=== PATIENT | female | born 1940 | race Caucasian/White ===

== ENCOUNTER 2017-09-19 13:15 | Outpatient (CLI) | payer MEDICARE | END 2017-09-19 13:16 | disposition home or self-care (01) | LOC: BICMAMMO 13:15 | PROVIDERS: ATTEND Obstetrics & Gynecology Gynecologic Oncology | DX: Z12.31 Encounter for screening mammogram for malignant neoplasm of breast (principal); R92.1 Mammographic calcification found on diagnostic imaging of breast; Z80.3 Family history of malignant neoplasm of breast; Z85.42 Personal history of malignant neoplasm of other parts of uterus | CPT/HCPCS: 77063; 77067 ==

== ENCOUNTER 2018-09-22 11:00 | Outpatient (CLI) | payer MEDICARE ==
--- NOTE | 2018-09-22 12:27 | RAD ---
TWO VIEWS CHEST: History: Malignant neoplasm of endometrium. Date: 09-22-18 Comparison: 10-10-16 FINDINGS: Two views chest demonstrates ectasia of the aorta. The lungs are well aerated. No evidence of active intrathoracic disease seen. No evidence of effusions, pneumonia, or pneumothorax seen. IMPRESSION: Unremarkable two views chest. POS: [facility]
== END 2018-09-22 11:01 | disposition home or self-care (01) ==
LOC: BICMAMMO 11:00
PROVIDERS: ATTEND Obstetrics & Gynecology Gynecologic Oncology
DX: Z12.31 Encounter for screening mammogram for malignant neoplasm of breast (principal); C54.1 Malignant neoplasm of endometrium; Z80.3 Family history of malignant neoplasm of breast; Z85.42 Personal history of malignant neoplasm of other parts of uterus
CPT/HCPCS: 71046; 77063; 77067

== ENCOUNTER 2018-11-06 14:44 | Outpatient (CLI) | payer MEDICARE ==
--- NOTE | 2018-11-06 15:44 | RAD ---
LUMBAR SPINE 2 VIEWS: HISTORY: M54.5, low back pain, difficulty standing and sitting for long periods of time. FINDINGS: There are some generalized disk-osteophytosis changes. Mild grade I spondylolisthesis of L4 on L5. No acute fracture or dislocation. IMPRESSION: Lumbar spondylosis with mild anterolisthesis of L4 on L5. POS: [facility]
--- NOTE | 2018-11-06 15:45 | RAD ---
CERVICAL SPINE AP AND LATERAL AND STANDARD: HISTORY: M54.16, radiculopathy, neck pain. COMPARISON: None. FINDINGS: The open mouth odontoid view is normal. The mandible is intact. Moderate disk arthropathy from C3-C6. There is mild narrowing of the C5-6 and C6-7 disk spaces uncin ate process hypertrophy. Degenerative 1-2 mm C3 over C4 anterolisthesis. IMPRESSION: Degenerative changes as described. No acute abnormality. POS: [facility]
== END 2018-11-06 14:45 | disposition home or self-care (01) ==
LOC: TBSIIMAG 14:44
PROVIDERS: ATTEND Neurological Surgery
DX: M47.26 Other spondylosis with radiculopathy, lumbar region (principal); M43.16 Spondylolisthesis, lumbar region; M47.812 Spondylosis without myelopathy or radiculopathy, cervical region
CPT/HCPCS: 72040; 72100

== ENCOUNTER 2019-09-24 14:15 | Outpatient (CLI) | payer MEDICARE ==
--- NOTE | 2019-09-24 16:04 | MMO ---
Bilateral MAMMO Bilat Screen [facility]. CLINICAL HISTORY: Patient is 79 years old and is seen for screening. The patient has no family history of breast cancer. The patient has a history of endometrial cancer at age 67. VIEWS: The views performed were: bilateral craniocaudal with tomosynthesis and bilateral mediolateral oblique with tomosynthesis. FILMS COMPARED: The present examination has been compared to prior imaging studies performed at [facility] on 09/14/2015, 09/17/2016, 09/19/2017 and 09/22/2018. This study has been interpreted with the assistance of computer-aided detection. MAMMOGRAM FINDINGS: There are scattered fibroglandular densities. There are stable benign appearing calcifications seen in both breasts. There are no suspicious masses, suspicious calcifications, or new areas of architectural distortion. IMPRESSION: THERE IS NO MAMMOGRAPHIC EVIDENCE OF MALIGNANCY. A ROUTINE FOLLOW-UP MAMMOGRAM IN 1 YEAR IS RECOMMENDED. THE RESULTS OF THIS EXAM WERE SENT TO THE PATIENT. ACR BI-RADS Category 2 - Benign finding MAMMOGRAPHY NOTE: 1. A negative mammogram report should not delay a biopsy if a dominant of clinically suspicious mass is present. 2. Approximately 10% to 15% of breast cancers are not detected by mammography. 3. Adenosis and dense breasts may obscure an underlying neoplasm. Reported by: ONDINA LYLES MD Electonically Signed: [id number]
== END 2019-09-24 14:16 | disposition home or self-care (01) ==
LOC: BICMAMMO 14:15
PROVIDERS: ATTEND Obstetrics & Gynecology Gynecologic Oncology
DX: Z12.31 Encounter for screening mammogram for malignant neoplasm of breast (principal); Z85.42 Personal history of malignant neoplasm of other parts of uterus
CPT/HCPCS: 77063; 77067

== ENCOUNTER 2020-06-10 09:27 | Outpatient (CLI) | payer MEDICARE ==
--- NOTE | 2020-06-10 11:58 | RAD ---
PA AND LATERAL VIEWS CHEST: Date: 06/10/2020 HISTORY: Dyspnea on exertion. COMPARISON: 09/22/2018. FINDINGS: The heart size is normal. The aorta is tortuous. The lungs are well expanded without lobar consolidat ion, pneumothoraces, or pleural effusions. There are degenerative changes in the spine. IMPRESSION: Stable exam. No acute process. POS: [facility]
== END 2020-06-10 09:28 | disposition home or self-care (01) ==
LOC: BICRAD 09:27
PROVIDERS: ATTEND Physician Assistant Medical
DX: R06.09 Other forms of dyspnea (principal); D50.9 Iron deficiency anemia, unspecified
CPT/HCPCS: 71046

== ENCOUNTER 2020-10-13 13:18 | Outpatient (CLI) | payer MEDICARE ==
--- NOTE | 2020-10-13 13:34 | RAD ---
EXAM: Chest PA and lateral: HISTORY: Dyspnea COMPARISON: 06/10/2020 FINDINGS: Lungs show no evidence of confluent infiltrate or consolidation. Interstitial markings are mildly pro minent especially in the right lower lung. These are stable from the prior study. Heart and mediastinum appear unremarkable. Osseous structures are unremarkable. IMPRESSION: No acute finding.
== END 2020-10-13 13:19 | disposition home or self-care (01) ==
LOC: BICRAD 13:18
PROVIDERS: ATTEND Internal Medicine Critical Care Medicine
DX: R06.00 Dyspnea, unspecified (principal)
CPT/HCPCS: 71046

== ENCOUNTER 2020-11-10 22:52 | Emergency (ER) | payer MEDICARE | END 2020-11-11 00:10 | disposition home or self-care (01) | LOC: ERS 22:52 | DX: S01.01XA Laceration without foreign body of scalp, initial encounter (principal); K21.9 Gastro-esophageal reflux disease without esophagitis; D64.9 Anemia, unspecified; W18.2XXA Fall in (into) shower or empty bathtub, initial encounter | CPT/HCPCS: 70450; 72125 ==

== ENCOUNTER 2020-12-01 09:10 | Outpatient (CLI) | payer MEDICARE ==
[2020-12-01 09:36] LABS: Estimated GFR-MDRD - POC Greater than 90
[2020-12-01] MEDS ORDERED: Iopamidol 370 76% 100 ML VIAL ONE (13:49)
== END 2020-12-01 09:11 | disposition home or self-care (01) ==
LOC: CT 09:10
PROVIDERS: ATTEND Internal Medicine Critical Care Medicine
DX: I26.99 Other pulmonary embolism without acute cor pulmonale (principal); K44.9 Diaphragmatic hernia without obstruction or gangrene
CPT/HCPCS: 71275; 82565; Q9967

== ENCOUNTER 2020-12-24 15:07 | Emergency (ER) | payer MEDICARE ==
[~2020-12-24 15:07] MED LIST: Iopamidol-370 76% 500 ML 1 ML ONE
[2020-12-24 16:28] LABS: #Basophils 0.1 thou/uL (0.0-0.2); #Lymphocytes 1.8 thou/uL (1.20-3.40); #Monocytes 1.1 thou/uL (0.11-0.59); #Neutrophils 11.3 thou/uL (1.40-6.50); %Basophils 0.5 % (0.0-1.0); %Eosinophils 0.1 % (0.0-10.0); %Lymphocytes 12.3 % (21.0-51.0); %Monocytes 7.7 % (0.0-10.0); %Neutrophils 79.4 % (42.0-75.0); Hemoglobin 14.6 g/dL (12.0-16.0); Mean Corpuscular HGB CONC 33.3 g/dL (32.0-36.0); Mean Corpuscular Hemoglobin 29.2 pg (27.0-31.0); Mean Corpuscular Volume 87.7 fL (78.0-98.0); Mean Platelet Volume 7.8 fL (7.4-10.4); Platelet Count 302 thou/uL (130-400); RBC Distribution Width 12.5 % (11.5-14.5); Red Blood Cell (RBC) Count 4.99 mill/uL (4.20-5.40); White Blood Cell (WBC) Count 14.2 thou/uL (4.8-10.8)
[2020-12-24 16:50] LABS: ALT (SGPT) 21 U/L (8-55); AST (SGOT) 24 U/L (5-34); Albumin 4.4 g/dL (3.4-4.8); Alkaline Phosphatase 79 U/L (40-110); Anion Gap 15 mmol/L (10-20); BUN (Urea Nitrogen) 9 mg/dL (9.8-20.1); Bilirubin, Total 0.9 mg/dL (0.2-1.2); Calc. Creatinine Clearance 0 mL/min (70-130); Calcium 9.7 mg/dL (7.8-10.44); Carbon Dioxide 26 mmol/L (23-31); Chloride 97 mmol/L (98-107); Globulin 3.4 g/dL (2.4-3.5); Glucose 115 mg/dL (83-110); Potassium 3.8 mmol/L (3.5-5.1); Protein, Total 7.8 g/dL (5.8-8.1); Sodium 134 mmol/L (136-145)
[2020-12-24] MEDS ORDERED: Ondansetron PF 4 MG/2 ML Vial ONE (17:31)
[2020-12-24 18:27] LABS: Bilirubin Negative (Negative); Blood, Urine Negative (Negative); Clarity Clear (Clear); Glucose, Urine (Dipstick) Normal (Negative); Ketone, Urine Negative (Negative); Leukocyte 75 Leu/uL (Negative); Nitrite Negative (Negative); Protein, Urine (Dipstick) Negative (Neg-Trace); RBC/HPF 0-3 HPF (0-3); Specific Gravity, Urine 1.023 (1.002-1.036); Urobilinogen Normal mg/dL (Less than 2); pH, Urine 5.5 (5.0-9.0)
[2020-12-24 18:30] LABS: Bacteria/HPF 1+ HPF (None Seen)
== END 2020-12-24 19:15 | disposition home or self-care (01) ==
LOC: ERS 15:07
DX: K57.32 Diverticulitis of large intestine without perforation or abscess without bleeding (principal); K21.9 Gastro-esophageal reflux disease without esophagitis; D50.9 Iron deficiency anemia, unspecified; Z79.84 Long term (current) use of oral hypoglycemic drugs; Z79.899 Other long term (current) drug therapy
CPT/HCPCS: 36415; 74177; 80053; 81003; 81015; 85025; 96374; J2405; Q9967

== ENCOUNTER 2021-08-12 21:46 | Emergency (ER) | payer MEDICARE ==
[2021-08-12 22:19] LABS: #Basophils 0.1 thou/uL (0.0-0.2); #Eosinphils 0.2 thou/uL (0.0-0.7); #Lymphocytes 2.5 thou/uL (1.20-3.40); %Basophils 1.2 % (0.0-1.0); %Eosinophils 1.7 % (0.0-10.0); %Lymphocytes 28.4 % (21.0-51.0); %Monocytes 11.8 % (0.0-10.0); %Neutrophils 56.9 % (42.0-75.0); Hemoglobin 14.9 g/dL (12.0-16.0); Mean Corpuscular HGB CONC 34.6 g/dL (32.0-36.0); Mean Corpuscular Hemoglobin 30.5 pg (27.0-31.0); Mean Platelet Volume 7.4 fL (7.4-10.4); Platelet Count 279 thou/uL (130-400); RBC Distribution Width 13.2 % (11.5-14.5); Red Blood Cell (RBC) Count 4.88 mill/uL (4.20-5.40); White Blood Cell (WBC) Count 8.8 thou/uL (4.8-10.8)
[2021-08-12] MEDS ORDERED: Acetaminophen 500 MG TAB ONE (22:20)
[2021-08-12 22:42] LABS: ALT (SGPT) 21 U/L (8-55); AST (SGOT) 18 U/L (5-34); Albumin 4.2 g/dL (3.4-4.8); Alkaline Phosphatase 63 U/L (40-110); Anion Gap 12 mmol/L (10-20); BUN (Urea Nitrogen) 12 mg/dL (9.8-20.1); Bilirubin, Total 0.4 mg/dL (0.2-1.2); Calc. Creatinine Clearance 0 mL/min (70-130); Calcium 9.7 mg/dL (7.8-10.44); Carbon Dioxide 29 mmol/L (23-31); Chloride 99 mmol/L (98-107); Globulin 3.1 g/dL (2.4-3.5); Glucose 106 mg/dL (83-110); Magnesium 2.1 mg/dL (1.6-2.6); Potassium 3.8 mmol/L (3.5-5.1); Protein, Total 7.3 g/dL (5.8-8.1); Sodium 136 mmol/L (136-145)
[2021-08-12 23:46] LABS: Bilirubin Negative (Negative); Blood, Urine Negative (Negative); Clarity Clear (Clear); Glucose, Urine (Dipstick) Normal (Negative); Ketone, Urine Negative (Negative); Leukocyte Negative Leu/uL (Negative); Nitrite Negative (Negative); Protein, Urine (Dipstick) Negative (Neg-Trace); Specific Gravity, Urine 1.018 (1.002-1.036); Urobilinogen Normal mg/dL (Less than 2); pH, Urine 6.5 (5.0-9.0)
[2021-08-13] MEDS ORDERED: diphenhydrAMINE 50 MG/ML VIAL ONE (00:42)
[2021-08-13] MEDS ORDERED: Metoclopramide HCl 10 MG/2 ML VIAL ONE (00:42)
== END 2021-08-13 01:52 | disposition home or self-care (01) ==
LOC: ERS 21:46
DX: R51.9 Headache, unspecified (principal); R42 Dizziness and giddiness; K21.9 Gastro-esophageal reflux disease without esophagitis; D64.9 Anemia, unspecified
CPT/HCPCS: 70450; 71045; 80053; 81003; 83735; 84484; 85025; 93005; 96365; 96375; J1200; J2765

== ENCOUNTER 2021-09-07 12:57 | Outpatient (CLI) | payer MEDICARE | END 2021-09-07 12:58 | disposition home or self-care (01) | LOC: BICMAMMO 12:57 | PROVIDERS: ATTEND Internal Medicine | DX: Z12.31 Encounter for screening mammogram for malignant neoplasm of breast (principal); M85.88 Other specified disorders of bone density and structure, other site; Z80.3 Family history of malignant neoplasm of breast; Z85.42 Personal history of malignant neoplasm of other parts of uterus | CPT/HCPCS: 77063; 77067; 77080 ==

== ENCOUNTER 2021-10-11 12:37 | Outpatient (CLI) | payer MEDICARE ==
[2021-10-11 13:35] LABS: Hemoglobin 12.7 g/dL (12.0-15.5); Mean Corpuscular HGB CONC 32.6 g/dL (32.0-36.0); Mean Corpuscular Hemoglobin 29.3 pg (27.0-33.0); Mean Corpuscular Volume 89.9 fl (81.6-98.3); Mean Platelet Volume 10.4 fl (7.4-10.4); Platelet Count 331 10x3/uL (150-450); Red Blood Cell (RBC) Count 4.34 10x6/uL (3.90-5.03); White Blood Cell (WBC) Count 8.2 10x3/uL (3.5-10.5)
[2021-10-11 13:47] LABS: Anion Gap 14 mmol/L (10-20); BUN (Urea Nitrogen) 9 mg/dL (9.8-20.1); Calc. Creatinine Clearance 0 mL/min (70-130); Calcium 9.3 mg/dL (7.8-10.44); Carbon Dioxide 27 mmol/L (23-31); Chloride 103 mmol/L (98-107); Glucose 96 mg/dL (83-110); Potassium 4.3 mmol/L (3.5-5.1); Sodium 140 mmol/L (136-145)
[2021-10-12 11:02] LABS: SARS-CoV-2 PCR by NAA DETECTED (NotDetected)
== END 2021-10-11 12:38 | disposition home or self-care (01) ==
LOC: LABBT 12:37
PROVIDERS: ATTEND Surgery
DX: Z01.812 Encounter for preprocedural laboratory examination (principal); K21.9 Gastro-esophageal reflux disease without esophagitis; K44.9 Diaphragmatic hernia without obstruction or gangrene; K25.7 Chronic gastric ulcer without hemorrhage or perforation; I51.89 Other ill-defined heart diseases; Z20.822 Contact with and (suspected) exposure to COVID-19
CPT/HCPCS: 80048; 85027; U0003; U0005

== ENCOUNTER 2022-10-27 15:21 | Inpatient (IN) | payer MEDICARE ==
[2022-10-27 16:40] LABS: #Monocytes 0.7 thou/uL (0.11-0.59); #Neutrophils 12.9 thou/uL (1.40-6.50); %Basophils 0.2 % (0.0-1.0); %Eosinophils 0.2 % (0.0-10.0); %Lymphocytes 12.5 % (21.0-51.0); %Monocytes 4.4 % (0.0-10.0); %Neutrophils 82.7 % (42.0-75.0); Hemoglobin 14.6 g/dL (12.0-16.0); Mean Corpuscular HGB CONC 33.1 g/dL (32.0-36.0); Mean Corpuscular Hemoglobin 29.7 pg (27.0-31.0); Mean Corpuscular Volume 89.6 fl (78.0-98.0); Mean Platelet Volume 8.7 fL (7.4-10.4); Platelet Count 281 10x3/uL (130-400); RBC Distribution Width 11.4 % (11.5-14.5); Red Blood Cell (RBC) Count 4.91 mill/uL (4.20-5.40); White Blood Cell (WBC) Count 15.6 10x3/uL (4.8-10.8)
[2022-10-27 17:03] LABS: ALT (SGPT) 20 U/L (8-55); AST (SGOT) 24 U/L (5-34); Albumin 4.2 g/dL (3.4-4.8); Alkaline Phosphatase 80 U/L (40-110); Anion Gap 16 mmol/L (10-20); BUN (Urea Nitrogen) 5 mg/dL (9.8-20.1); Bilirubin, Total 0.6 mg/dL (0.2-1.2); Calc. Creatinine Clearance 0 mL/min (70-130); Calcium 9.8 mg/dL (7.8-10.44); Carbon Dioxide 24 mmol/L (23-31); Chloride 102 mmol/L (98-107); Estimated GFR 87; Globulin 2.9 g/dL (2.4-3.5); Glucose 135 mg/dL (83-110); Protein, Total 7.1 g/dL (5.8-8.1); Sodium 138 mmol/L (136-145)
[2022-10-27 17:48] LABS: Bacteria/HPF None Seen HPF (None Seen); Bilirubin Negative (Negative); Blood, Urine Negative (Negative); Clarity Turbid (Clear); Glucose, Urine (Dipstick) Normal (Negative); Ketone, Urine Negative (Negative); Leukocyte 250 Leu/uL (Negative); Mucous/LPF Rare LPF (<2+); Nitrite Negative (Negative); Protein, Urine (Dipstick) Negative (Neg-Trace); RBC/HPF 0-3 HPF (0-3); Specific Gravity, Urine 1.015 (1.002-1.036); Urobilinogen Normal mg/dL (Less than 2); WBC/HPF 21-50 HPF (0-3); pH, Urine 6.5 (5.0-9.0)
[2022-10-27] MEDS ORDERED: Ondansetron PF 4 MG/2 ML Vial ONE (18:47)
[2022-10-27] MEDS ORDERED: cefTRIAXone\\ROCEPHIN 1 GM VIAL ONE (18:47)
[2022-10-27] MEDS ORDERED: hydrALAZINE 20 MG/ML VIAL SLOW IVP PRN (20:11)
[2022-10-27] MEDS ORDERED: Ondansetron ODT 4 MG TAB PO PRN (22:13)
[2022-10-27] MEDS ORDERED: Acetaminophen 325 MG TAB PO PRN (22:14)
[2022-10-27] MEDS: Ondansetron PF 4 MG/2 ML Vial IVP PRN (22:46)
[2022-10-27] MEDS: HYDROcodone/Acetaminophen 5/325 mg Tablet PO PRN (22:46)
[2022-10-27] MEDS: Sodium Chloride 0.9% 1,000 ML IV SCH (22:50)
[2022-10-28 05:01] VITALS: BMI 26.8
[2022-10-28 06:48] LABS: SARS-CoV-2 NAA Rapid Test Not Detected (NotDetected)
[2022-10-28 09:14] LABS: #Basophils 0.1 thou/uL (0.0-0.2); #Eosinphils 0.1 thou/uL (0.0-0.7); #Lymphocytes 2.4 thou/uL (1.20-3.40); #Neutrophils 8.2 thou/uL (1.40-6.50); %Basophils 0.5 % (0.0-1.0); %Eosinophils 0.4 % (0.0-10.0); %Lymphocytes 20.6 % (21.0-51.0); %Monocytes 8.8 % (0.0-10.0); %Neutrophils 69.7 % (42.0-75.0); Hemoglobin 13.2 g/dL (12.0-16.0); Mean Corpuscular HGB CONC 34.2 g/dL (32.0-36.0); Mean Corpuscular Hemoglobin 30.6 pg (27.0-31.0); Mean Corpuscular Volume 89.4 fl (78.0-98.0); Mean Platelet Volume 8.3 fL (7.4-10.4); Platelet Count 253 10x3/uL (130-400); RBC Distribution Width 11.5 % (11.5-14.5); White Blood Cell (WBC) Count 11.7 10x3/uL (4.8-10.8)
[2022-10-28] MEDS: Sodium Chloride 0.9% 1,000 ML IV SCH (10:09)
[2022-10-28] MEDS: Ondansetron PF 4 MG/2 ML Vial IVP PRN (10:11)
[2022-10-28] MEDS: HYDROcodone/Acetaminophen 5/325 mg Tablet PO PRN (10:11)
[2022-10-28 15:49] VITALS: BP 139/86; TEMP 98.6
[2022-10-28] MEDS ORDERED: cefTRIAXone\\ROCEPHIN 1 GM in Sodium Chloride 0.9% 100 ML IVPB SCH (18:00)
== END 2022-10-28 16:50 | disposition home or self-care (01) | DRG 690 ==
LOC: ERS 15:21 → SURG A 20:08
PROVIDERS: ADMIT Hospitalist; ATTEND Internal Medicine
DX: N39.0 Urinary tract infection, site not specified (principal); K21.9 Gastro-esophageal reflux disease without esophagitis; K58.9 Irritable bowel syndrome, unspecified; K44.9 Diaphragmatic hernia without obstruction or gangrene; Z90.49 Acquired absence of other specified parts of digestive tract; Z90.710 Acquired absence of both cervix and uterus; Z91.012 Allergy to eggs; Z88.0 Allergy status to penicillin; Z88.1 Allergy status to other antibiotic agents; Z88.8 Allergy status to other drugs, medicaments and biological substances; Z79.899 Other long term (current) drug therapy
CPT/HCPCS: 36415; 70450; 71045; 72125; 80053; 81003; 81015; 84484; 85025; 87040; 87086; 93005; 96361; 96365; 96375; J0696; J1650; J2405; J3490; J7050; U0002

== ENCOUNTER 2023-03-31 13:23 | Inpatient (IN) | payer MEDICARE ==
[2023-03-31 14:23] LABS: #Basophils 0.1 thou/uL (0.0-0.2); #Monocytes 1.1 thou/uL (0.11-0.59); #Neutrophils 5.1 thou/uL (1.40-6.50); %Basophils 0.7 % (0.0-1.0); %Eosinophils 0.3 % (0.0-10.0); %Lymphocytes 12.7 % (21.0-51.0); %Monocytes 15.4 % (0.0-10.0); %Neutrophils 70.6 % (42.0-75.0); Hematocrit 41.5 % (36.0-47.0); Hemoglobin 13.9 g/dL (12.0-16.0); Mean Corpuscular HGB CONC 33.5 g/dL (32.0-36.0); Mean Corpuscular Hemoglobin 29.3 pg (27.0-31.0); Mean Corpuscular Volume 87.4 fl (78.0-98.0); Mean Platelet Volume 10.9 fL (7.4-10.4); Platelet Count 252 10x3/uL (130-400); RBC Distribution Width 12.7 % (11.5-14.5); Red Blood Cell (RBC) Count 4.75 mill/uL (4.20-5.40); White Blood Cell (WBC) Count 7.3 10x3/uL (4.8-10.8)
[2023-03-31 14:48] LABS: ALT (SGPT) 18 U/L (8-55); AST (SGOT) 21 U/L (5-34); Albumin 4.2 g/dL (3.4-4.8); Alkaline Phosphatase 82 U/L (40-110); BUN (Urea Nitrogen) 6 mg/dL (9.8-20.1); Bilirubin, Total 0.5 mg/dL (0.2-1.2); Calc. Creatinine Clearance 0 mL/min (70-130); Calcium 9.2 mg/dL (7.8-10.44); Carbon Dioxide 29 mmol/L (23-31); Chloride 110 mmol/L (98-107); Estimated GFR 82; Globulin 2.9 g/dL (2.4-3.5); Glucose 107 mg/dL (83-110); Magnesium 1.6 mg/dL (1.6-2.6); Protein, Total 7.1 g/dL (5.8-8.1); Sodium 123 mmol/L (136-145)
[2023-03-31] MEDS ORDERED: Potassium Chloride 20 MEQ TAB ONE (15:15)
[2023-03-31 16:07] LABS: Bacteria/HPF None Seen HPF (None Seen); Bilirubin Negative (Negative); Blood, Urine Negative (Negative); CAUTI Indications for Culture Dysuria,urgency,freq; Clarity Clear (Clear); Glucose, Urine (Dipstick) Normal (Negative); Ketone, Urine Negative (Negative); Leukocyte Negative Leu/uL (Negative); Mucous/LPF Rare LPF (<2+); Nitrite Negative (Negative); Protein, Urine (Dipstick) 10 mg/dL (Neg-Trace); RBC/HPF 0-3 HPF (0-3); Squamous Epithelial 0-3 HPF (0-3); Urobilinogen Normal mg/dL (Less than 2); WBC/HPF 0-3 HPF (0-3); pH, Urine 5.5 (5.0-9.0)
[2023-03-31 16:10] LABS: Urine Culture Reflex No No
[2023-03-31 17:44] LABS: Troponin I Less than 0.010 ng/mL (< 0.028)
[2023-03-31 18:49] VITALS: BMI 25.7
[2023-03-31 20:48] LABS: Troponin I Less than 0.010 ng/mL (< 0.028)
[2023-03-31] MEDS ORDERED: Dextrose 5% in Water 1,000 ML IV SCH (23:45)
[2023-03-31 23:47] LABS: Anion Gap 14 mmol/L (10-20); BUN (Urea Nitrogen) 7 mg/dL (9.8-20.1); Calc. Creatinine Clearance 66 mL/min (70-130); Calcium 8.9 mg/dL (7.8-10.44); Carbon Dioxide 26 mmol/L (23-31); Chloride 99 mmol/L (98-107); Estimated GFR 79; Glucose 120 mg/dL (83-110); Potassium 3.7 mmol/L (3.5-5.1); Sodium 135 mmol/L (136-145)
[2023-04-01] MEDS: Benzonatate 100 MG CAP PO PRN (00:11)
[2023-04-01] MEDS ORDERED: HYDROcodone/Acetaminophen 5/325 mg Tablet PO PRN ×2 (03:45)
[2023-04-01] MEDS ORDERED: Acetaminophen 325 MG TAB PO PRN (03:45)
[2023-04-01 05:55] LABS: Anion Gap 12 mmol/L (10-20); BUN (Urea Nitrogen) 7 mg/dL (9.8-20.1); Calc. Creatinine Clearance 71 mL/min (70-130); Calcium 8.6 mg/dL (7.8-10.44); Carbon Dioxide 26 mmol/L (23-31); Chloride 98 mmol/L (98-107); Estimated GFR 87; Glucose 119 mg/dL (83-110); Potassium 3.4 mmol/L (3.5-5.1); Sodium 133 mmol/L (136-145)
[2023-04-01] MEDS: Famotidine 20 MG TAB PO SCH ×2 (09:25→22:06)
[2023-04-01 16:35] LABS: Potassium 3.9 mmol/L (3.5-5.1); Sodium 131 mmol/L (136-145)
[2023-04-01] MEDS ORDERED: [UNRECOGNIZED DRUG - OTHER] PO SCH (21:00)
[2023-04-01] MEDS ORDERED: Donepezil HCl 10 MG TAB PO SCH (21:00)
[2023-04-01] MEDS ORDERED: Donepezil HCl 5 MG TAB PO SCH (22:15)
[2023-04-02 04:42] LABS: Hematocrit 38.5 % (36.0-47.0); Hemoglobin 13.2 g/dL (12.0-16.0); Manual Diff?? YES; Mean Corpuscular HGB CONC 34.3 g/dL (32.0-36.0); Mean Corpuscular Hemoglobin 29.3 pg (27.0-31.0); Mean Corpuscular Volume 85.6 fl (78.0-98.0); Mean Platelet Volume 11.3 fL (7.4-10.4); Platelet Count 207 10x3/uL (130-400); RBC Distribution Width 12.5 % (11.5-14.5); White Blood Cell (WBC) Count 4.6 10x3/uL (4.8-10.8)
[2023-04-02 04:59] LABS: Delete Auto Diff?? YES
[2023-04-02 05:10] LABS: Anion Gap 14 mmol/L (10-20); BUN (Urea Nitrogen) 9 mg/dL (9.8-20.1); Calc. Creatinine Clearance 77 mL/min (70-130); Calcium 8.5 mg/dL (7.8-10.44); Carbon Dioxide 24 mmol/L (23-31); Chloride 92 mmol/L (98-107); Estimated GFR 89; Glucose 100 mg/dL (83-110); Potassium 3.3 mmol/L (3.5-5.1); Sodium 127 mmol/L (136-145)
[2023-04-02 06:17] LABS: Anisocytosis SLIGHT = 6-15 cells HPF (0-5); Band 3 % (5-11); Burr Cells SLIGHT = 2-5 cells HPF (0-1); CellaVision Operator ID LAB.JMM; Eosinophils 1 % (0-10); Large Platelets 5.1 % (0-5); Lymphocytes 28 % (21-51); Monocytes 24 % (0-10); Neutrophil 40 % (42-75); Platelet Adequacy Comment Platelets Normal; Reactive Lymphocytes 1 % (0-10); Smudge Cells 43.4 %; Total Cell Count 99
[2023-04-02] MEDS: Famotidine 20 MG TAB PO SCH ×2 (09:58→21:27)
[2023-04-02] MEDS: Metamucil PACK PO SCH (09:58)
[2023-04-02] MEDS ORDERED: Potassium Chloride 20 MEQ TAB PO SCH (11:00)
[2023-04-02 16:33] LABS: Potassium 3.4 mmol/L (3.5-5.1); Sodium 123 mmol/L (136-145)
[2023-04-02] MEDS ORDERED: Donepezil HCl 5 MG TAB PO SCH (21:00)
[2023-04-02] MEDS: Benzonatate 100 MG CAP PO PRN (21:26)
[2023-04-03 05:07] LABS: Anion Gap 13 mmol/L (10-20); BUN (Urea Nitrogen) 9 mg/dL (9.8-20.1); Calc. Creatinine Clearance 73 mL/min (70-130); Calcium 8.8 mg/dL (7.8-10.44); Carbon Dioxide 24 mmol/L (23-31); Chloride 95 mmol/L (98-107); Estimated GFR 88; Glucose 97 mg/dL (83-110); Potassium 3.3 mmol/L (3.5-5.1); Sodium 129 mmol/L (136-145)
[2023-04-03] MEDS: Metamucil PACK PO SCH ×2 (09:19→09:20)
[2023-04-03] MEDS: Famotidine 20 MG TAB PO SCH (09:19)
[2023-04-03 10:34] VITALS: TEMP 98
[2023-04-03 11:57] VITALS: BP 128/78
== END 2023-04-03 13:45 | disposition home or self-care (01) | DRG 641 ==
LOC: ERS 13:23 → 2NO 16:13 → OBSVTOIN 04-01 16:24
PROVIDERS: ADMIT Internal Medicine; ATTEND Hospitalist
DX: E87.1 Hypo-osmolality and hyponatremia (principal); E87.6 Hypokalemia; K21.9 Gastro-esophageal reflux disease without esophagitis; F03.90 Unspecified dementia, unspecified severity, without behavioral disturbance, psychotic disturbance, mood disturbance, and anxiety; N18.2 Chronic kidney disease, stage 2 (mild); I12.9 Hypertensive chronic kidney disease with stage 1 through stage 4 chronic kidney disease, or unspecified chronic kidney disease; Z91.012 Allergy to eggs; Z91.09 Other allergy status, other than to drugs and biological substances; Z79.899 Other long term (current) drug therapy; Z90.49 Acquired absence of other specified parts of digestive tract; Z98.890 Other specified postprocedural states; Z90.710 Acquired absence of both cervix and uterus; Z88.0 Allergy status to penicillin; Z88.8 Allergy status to other drugs, medicaments and biological substances
CPT/HCPCS: 36415; 51701; 70450; 71045; 72125; 80048; 80053; 81001; 83735; 83930; 83935; 84145; 84300; 84443; 84484; 84550; 84560; 85025; 86140; 93005; 96372; 96374; G0378; J1650; J2597; J7070

== ENCOUNTER 2024-01-08 08:12 | Outpatient (CLI) | payer MEDICARE | END 2024-01-08 08:13 | disposition home or self-care (01) | LOC: BICMAMMO 08:12 | PROVIDERS: ATTEND Internal Medicine | DX: Z13.820 Encounter for screening for osteoporosis (principal); M85.89 Other specified disorders of bone density and structure, multiple sites; Z78.0 Asymptomatic menopausal state | CPT/HCPCS: 77080 ==